=== PATIENT | male | born 2000 | race Caucasian/White ===

== ENCOUNTER 2018-10-19 15:29 | Emergency (ER) | payer BC ==
[~2018-10-19] VITALS: Ht 165.1 cm; Wt 111.4 kg
[2018-10-19 15:39] VITALS: TEMP 99.1
[2018-10-19] MEDS ORDERED: CORTEF 20MG TAB20 MG PO (15:45)
[2018-10-19] MEDS ORDERED: CORTEF 10MG TAB10 MG PO (15:46)
[2018-10-19] MEDS ORDERED: EFFEXOR 75M75 MG/TAB PO (15:47)
[2018-10-19 16:31] LABS: BASO # 0.1 (0.0-0.2); BASO % 0.3 % (0.0-2.0); EOS % 0.1 % (0-4.0); GRAN # 13.6 (1.4-6.5); GRAN % 83.1 % (42.2-75.2); HEMATOCRIT 48.9 % (36.0-47.0); HEMOGLOBIN 16.5 g/dl (12.5-16.1); LYMPH % 6.3 % (20.0-51.0); MEAN CELL VOLUME 81 fl (80.0-95.0); MEAN CORPUSCULAR HEMOGLOBIN 28 pg (26.0-32.0); MEAN CORPUSCULAR HGB CONC 34 g/dl (33.0-37.0); MEAN PLATELET VOLUME 8.7 fl (7.4-10.4); MONO # 1.5 (0.1-0.6); MONO % 9.3 % (1.7-9.3); PLATELET COUNT 345 K/mm3 (130-400); RED BLOOD COUNT 6.01 M/mm3 (4.20-5.60); REDCELL DISTRIBUTION WIDTH-CV 13.7 % (11.5-14.5)
[2018-10-19 16:41] LABS: ALBUMIN 4.7 gm/dL (3.5-5.0); BILIRUBIN,TOTAL 1.1 mg/dL (0.0-1.0); CALCIUM 9.5 mg/dL (8.4-10.2); POTASSIUM 3.8 mmol/L (3.4-5.0); TOTAL PROTEIN 8.1 gm/dL (6.4-8.2)
[2018-10-19 17:10] LABS: BAND 1 % (0-10); LYMPHOCYTE 9 % (20.0-51.0); METAMYELOCYTE 1 % (0-0); NEUTROPHILS 78 % (42.0-75.2); PLATELET ESTIMATE NORMAL (NORMAL)
[2018-10-19] MEDS ORDERED: PHENERGAN 25 TA25 MG PO (18:42)
[2018-10-19 18:58] LABS: COLLECTION METHOD CLEAN CATCH
[2018-10-19 19:06] LABS: MUCOUS Present /lpf; PH 5 (5-8); SQUAMOUS EPITHELIAL 0-2 /hpf; URINE APPEARANCE Clear; URINE BACTERIA None Seen /hpf; URINE BILIRUBIN Negative (NEGATIVE); URINE BLOOD Negative (NEGATIVE); URINE COLOR Yellow; URINE GLUCOSE Negative (NEGATIVE); URINE KETONE 1+ (NEGATIVE); URINE LEUKOCYTE ESTERASE Negative (NEGATIVE); URINE NITRATE Negative (NEGATIVE); URINE PROTEIN(semi-quant) Negative (NEGATIVE); URINE RBC 0-2 /hpf; URINE UROBILINOGEN Negative (NEGATIVE)
[2018-10-19 19:07] VITALS: BP 128/95; PULSE 111
== END 2018-10-19 19:07 | disposition home or self-care (01) ==
LOC: COL.ER 15:29
PROVIDERS: Emergency Medicine
DX: E27.40 Unspecified adrenocortical insufficiency (principal); R11.10 Vomiting, unspecified; R19.7 Diarrhea, unspecified
CPT/HCPCS: J0780; J1720; J7030; J7042